=== PATIENT | female | born 1995 | race Hispanic/Latino ===

== ENCOUNTER 2018-03-26 07:54 | Inpatient (IN) | payer SELFPAY ==
[2018-03-26] MEDS ORDERED: ONDANSETRON 4 MG/2 ML VIAL ONE (08:08)
[2018-03-26] MEDS ORDERED: NA CHLORIDE 0.9% 1,000 ML ONE (08:08)
[2018-03-26 08:31] LABS: Absolute Lymphocytes (CBC) 1.6 K/uL (0.7-4.9); Absolute Monocytes 0.7 K/uL (0.1-1.3); Absolute Neutrophil 25.5 K/uL (1.8-8.0); Basophils % 0.1 % (0-1.3); Hematocrit 39.6 % (36.0-45.0); Lymphocytes % 5.8 % (15.3-44.8); MCH 24.7 pg (27.0-35.0); MCV 77.5 fL (80-100); MPV 7.5 fL (7.6-11.3); Monocytes % 2.7 % (3.3-12.3); RBC Red Blood Cell Count 5.11 M/uL (3.86-4.86)
[2018-03-26 08:36] LABS: Protime INR 1.38
--- NOTE | 2018-03-26 08:50 | RAD REPORT ---
EXAM DESCRIPTION: CT - CTHCSPWOC - 03/26/2018 8:23 am CLINICAL HISTORY: Fall, head and neck pain, head and neck injury, seizure COMPARISON: None. TECHNIQUE: Axial 5 mm thick images of the head were obtained. Axial 2 mm thick images of the cervic al spine were obtained with sagittal and coronal reconstruction images generated and reviewed. All CT scans are performed using dose optimization technique as appropriate and may include automated exposure control or mA/KV adjustment according to patient size. FINDINGS: No intracranial hemorrhage, mass, edema or acute intracranial finding. No suspicion for acute infarct ion. No extra-axial fluid collections. Mastoid air cells and paranasal sinuses are clear. No globe or orbit abnormality seen. Cervical bodies are normal in height. No subluxation abnormality. Reversal of the usual cervical lord osis is likely positioning artifact. Muscle spasm can create this pattern. No disk space narrowing. N o fracture or acute bony abnormality. No paraspinal soft tissue mass. Patient has a few small nonspec ific cervical lymph nodes. Left submandibular gland gland is smaller than the normal sized right. No suspicious soft tissue mass. IMPRESSION: Negative CT head examination for acute or significant finding. Negative CT cervical spine examination for acute or significant finding. Central canal detail is inherently limited. If there are concerns for disc herniation or central toño l abnormality, MR imaging followup could be performed.
[2018-03-26 08:59] LABS: ALT/SGPT 20 U/L (12-78); AST/SGOT 18 U/L (15-37); Albumin 3.3 g/dL (3.4-5.0); Alkaline Phosphatase 84 U/L (45-117); Amylase Level 30 U/L (25-115); BUN Blood Urea Nitrogen 9 mg/dL (7-18); Bicarbonate 23 mmol/L (21-32); Bilirubin Direct 0.2 mg/dL (0-0.2); Bilirubin Total 0.4 mg/dL (0.2-1.0); CKMB Creatine Kinase MB < 1.0 ng/mL (0.3-3.6); Creatine Phosphokinase 46 U/L (26-192); Glucose Level 131 mg/dL (74-106); Lipase 68 U/L (73-393); Magnesium 2.2 mg/dL (1.8-2.4); Potassium 3.4 mmol/L (3.5-5.1); Protein, Total 8.7 g/dL (6.4-8.2); Sodium Level 135 mmol/L (136-145)
[2018-03-26 09:26] LABS: Platelet Estimate ADEQ
[2018-03-26 09:27] LABS: Blood Morphology Comment NOT SEEN (NOT SEEN)
[2018-03-26] MEDS ORDERED: METRONIDAZOLE 500mg IVPB 500 MG/100 ML BAG IV ONE (09:37)
[2018-03-26] MEDS ORDERED: Levofloxacin500mg IV 500 MG/100 ML BAG IV ONE (09:37)
--- NOTE | 2018-03-26 09:44 | EKG ---
Test Date: 2018-03-26 Test Time: 08:13:11 [employer]: [place] MEASUREMENT RESULTS: Intervals: Rate: 64 MA: 162 QRSD: 112 QT: 422 QTc: 435 [place]: P: 44 MA: 162 QRS: -6 T: 2 INTERPRETIVE STATEMENTS: Normal sinus rhythm Minimal voltage criteria for LVH, may be normal variant Borderline ECG No previous ECG available for comparison Electronically Signed On 03-26-18 09:44:00 CDT by Tam Hastings
--- NOTE | 2018-03-26 11:03 | EDPHYS ---
Physician Documentation [facility] Name: Saloni Okeefe Age: 23 yrs Sex: Female : 1995 Arrival Date: 03/26/2018 Time: 07:53 Bed 13 Private MD: ED Physician Bruno Garg HPI: 03/26 08:01 This 23 yrs old Female presents to ER via EMS with complaints of Blood kav Pressure Problem, Seizure. 08:01 Onset: The symptoms/episode began/occurred acutely, just prior to arrival. Associated kav signs and symptoms: Pertinent positives:. 08:01 The patient or guardian reports tenderness. The complaints affect the bridge of nose kav and apex of the nose, bloody discharge.. Context of injury: The problem was sustained at home, resulted from a fall, from a seated position, Patient reports falling off of the toilet.. Associated signs and symptoms: Loss of consciousness: This patient experience a loss of consciousness, that was brief, for 1 minute(s), Pertinent positives: loss of conciousness, neck pain, seizure, base of the skull, Pertinent negatives: double vision, headache, incontinence, nausea, shortness of breath, vomiting, weakness in extremities, generalized weakness. The patient's problem is reported as an apparent seizure, with the patient having a single isolated episode, Episodes lasted less that one minute. Motor activity is described as blank stare, Brief loss of consciousness. Patient was not incontinent of bowel or bladder. Patient was not apneic. Loss of pulse was not noted. Post-ictal symptoms: None. syncope, syncope, vertigo, to room. Duration: This was a single incident. Context: the episode(s) was witnessed, by family, mother, occurred at home, occurred while the patient was sitting on the toilet. Possible contributing factors include:. This is a morbidly obese, female patient who is accompanied by her sister who reports PMHX: Seizure x 1 approximately one year ago and takes no medications for seizures. She reports that she has been currently "...doing a diet cleanse with herbal supplements". She reports that she began experiencing dizziness while sitting on the toilet and then waking up on the bathroom floor. She is hypotensive on admission to ED 88/64. She c/o nasal congestion and tenderness and reports epistaxis after fall. There is currently no nasal discharge in the ED on arrival. She also c/o left cheek tenderness and neck tenderness.. 09:07 She also reports diarrhea x 10 on 03/25/18 and low grade temperature.. 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 - Social history:: Smoking status: Patient/guardian denies using tobacco, Patient/guardian denies using alcohol. - Ebola Screening: : Patient negative for fever greater than or equal to 101.5 degrees Fahrenheit, and additional compatible Ebola Virus Disease symptoms Patient denies exposure to infectious person Patient denies travel to an Ebola-affected area in the 21 days before illness onset. - Family history:: not pertinent. - Hospitalizations: : No recent hospitalization is reported. - History obtained from: sister. ROS: 08:14 Constitutional: Negative for fever, chills, and weight loss, Eyes: Negative for injury, kav pain, redness, and discharge, Cardiovascular: Negative for chest pain, palpitations, and edema, Respiratory: Negative for shortness of breath, cough, wheezing, and pleuritic chest pain, Abdomen/GI: Negative for abdominal pain, nausea, vomiting, diarrhea, and constipation, Back: Negative for injury and pain, : Negative for injury, bleeding, discharge, and swelling, MS/Extremity: Negative for injury and deformity, Skin: Negative for injury, rash, and discoloration, Psych: Negative for depression, anxiety, suicide ideation, homicidal ideation, and hallucinations, Allergy/Immunology: Negative for hives, rash, and allergies, Endocrine: Negative for neck swelling, polydipsia, polyuria, polyphagia, and marked weight changes, Hematologic/Lymphatic: Negative for swollen nodes, abnormal bleeding, and unusual bruising. 08:14 ENT: Positive for nose bleed, sinus congestion, Negative for nasal discharge. 08:14 Neck: Positive for tenderness, Negative for injury or acute deformity, pain with movement, pain at rest, swelling, bony tenderness. 08:14 Neuro: Positive for dizziness, loss of consciousness, seizure activity, syncope, Negative for altered mental status, gait disturbance, headache, hearing loss, tingling, tinnitus, tremor, visual changes, weakness. 08:21 Abdomen/GI: Positive for diarrhea. kav Exam: 08:14 Constitutional: This is a well developed, well nourished patient who is awake, alert, kav and in no acute distress. Head/Face: Normocephalic, atraumatic. Eyes: Pupils equal round and reactive to light, extra-ocular motions intact. Lids and lashes normal. Conjunctiva and sclera are non-icteric and not injected. Cornea within normal limits. Periorbital areas with no swelling, redness, or edema. Neck: Trachea midline, no thyromegaly or masses palpated, and no cervical lymphadenopathy. Supple, full range of motion without nuchal rigidity, or vertebral point tenderness. No Meningismus. Chest/axilla: Normal chest wall appearance and motion. Nontender with no deformity. No lesions are appreciated. Cardiovascular: Regular rate and rhythm with a normal S1 and S2. No gallops, murmurs, or rubs. Normal PMI, no JVD. No pulse deficits. Respiratory: Lungs have equal breath sounds bilaterally, clear to auscultation and percussion. No rales, rhonchi or wheezes noted. No increased work of breathing, no retractions or nasal flaring. Abdomen/GI: Soft, non-tender, with normal bowel sounds. No distension or tympany. No guarding or rebound. No evidence of tenderness throughout. Back: No spinal tenderness. No costovertebral tenderness. Full range of motion. Skin: Warm, dry with normal turgor. Normal color with no rashes, no lesions, and no evidence of cellulitis. MS/ Extremity: Pulses equal, no cyanosis. Neurovascular intact. Full, normal range of motion. Psych: Awake, alert, with orientation to person, place and time. Behavior, mood, and affect are within normal limits. 08:14 ENT: Nose: External nose: swelling is noted, Examination of the other nostril shows no obvious abnormality. 08:14 Neuro: Exam negative for acute changes, focal neuro deficits, motor deficits, sensory deficits, cerebellar deficits, altered mental status, confusion, cranial nerve deficits, disorientation, dysarthria, gait abnormality, memory loss, paresthesias, Romberg test, weakness, Orientation: 11:04 Radiologist reports: Head/C-Spine CT: No acute or significant findings ka Vital Signs: 08:02 BP 104 / 62; Pulse 61; Resp 18; Temp 97.8(O); Pulse Ox 98% on R/A; Weight 131.54 kg; hj Height 5 ft. 5 in. (165.10 cm); 09:07 BP 104 / 60; Pulse 65; Resp 18; Pulse Ox 100% on R/A; hj 10:05 BP 108 / 70; Pulse 66; Resp 18; Pulse Ox 100% on R/A; hj 11:17 BP 112 / 68; Pulse 81; Resp 18; Pulse Ox 100% on R/A; hj 08:02 Body Mass Index 48.26 (131.54 kg, 165.10 cm) hj [place] Coma Score: 07:59 Eye Response: spontaneous(4). Verbal Response: oriented(5). Motor Response: obeys hj commands(6). Total: 15. 08:01 Eye Response: spontaneous(4). Verbal Response: oriented(5). Motor Response: obeys kav commands(6). Total: 15. MDM: 07:58 Medical screening is not applicable. kav 08:46 Data reviewed: vital signs, nurses notes, lab test result(s). ED course: critical lab [facility] result: wbc 27.9. 10:37 Physician consultation: Vijay Deblizandro APPIAH was called at 10:38, was contacted at 10:38, ka regarding admission, to the telemetry unit. to the medical/surgical unit. and will see patient in ED, shortly. 03/26 07:57 Order name: UDS 03/26 07:57 Order name: Amylase, Serum 03/26 07:57 Order name: Basic Metabolic Panel; Complete Time: 10:28 03/26 07:57 Order name: CBC with Diff; Complete Time: 10:28 03/26 08:59 Interpretation: Normal except: RBC 5.11; MCV 77.5; MCH 24.7; MCHC 31.8; PLT 413; RDW kav 15.4; MPV 7.5; JOSH% 91.4; LYM% 5.8; MN% 2.7; NEUT A 25.5; WBC 27.9. 03/26 07:57 Order name: Ckmb; Complete Time: 10:28 03/26 07:57 Order name: CPK; Complete Time: 10:28 03/26 07:57 Order name: Hepatic Function; Complete Time: 10:28 03/26 07:57 Order name: Lipase; Complete Time: 10:28 03/26 07:57 Order name: Magnesium; Complete Time: 10:28 03/26 07:57 Order name: Protime (+inr); Complete Time: 08:59 03/26 08:59 Interpretation: Normal except: PT 16.3. 03/26 07:57 Order name: Ptt, Activated; Complete Time: 08:59 03/26 09:00 Interpretation: Within normal limits. 03/26 07:57 Order name: Troponin (emerg Dept Use Only); Complete Time: 10:28 03/26 07:58 Order name: Urine Drug Screen 03/26 07:58 Order name: Amylase Level; Complete Time: 10:28 03/26 07:57 Order name: CT Head C Spine; Complete Time: 08:57 03/26 08:57 Interpretation: No acute disease. 03/26 07:57 Order name: EKG; Complete Time: 07:58 03/26 08:46 Order name: Manual Differential; Complete Time: 10:28 03/26 10:28 Interpretation: SEGS 88; BANDS [F] 5; LYM 7. 03/26 09:07 Order name: Blood Culture Adult (2) 03/26 09:07 Order name: Fecal Leukocyte Stain 03/26 09:07 Order name: Ova And Parasites 03/26 09:07 Order name: Stool Culture 03/26 09:07 Order name: CDIFF 03/26 09:07 Order name: CT Abd/Pelvis - W/Contrast 03/26 12:29 Order name: CT ED03/26 07:57 Order name: Cardiac monitoring; Complete Time: 08:03 03/26 07:57 Order name: EKG - Nurse/Tech; Complete Time: 08:15 03/26 07:57 Order name: IV Saline Lock; Complete Time: 08:15 03/26 07:57 Order name: Labs collected and sent; Complete Time: 08:15 kav 03/26 07:57 Order name: NPO; Complete Time: 08:03 kav 03/26 07:57 Order name: O2 Per Protocol; Complete Time: 08:03 kav 03/26 07:57 Order name: O2 Sat Monitoring; Complete Time: 08:04 kav Administered Medications: 08:12 Drug: NS 0.9% 1000 ml Route: IV; Rate: 1 bolus; Site: right antecubital; hj 11:21 Follow up: IV Status: Completed infusion hj 08:12 Drug: Zofran 4 mg Route: IVP; Site: right antecubital; hj 08:54 Follow up: Response: No adverse reaction hj 09:42 Drug: LevaQUIN 500 mg Volume: 100 ml; Route: IVPB; Infused Over: 60 mins; Site: right hj antecubital; 11:19 Follow up: IV Status: Completed infusion hj 10:20 Drug: Flagyl 500 mg Volume: 100 ml; Route: IVPB; Rate: 200 ml/hr; Infused Over: 30 hj mins; Site: right antecubital; 11:19 Follow up: IV Status: Completed infusion Disposition: 13:34 Co-signature as Attending Physician, Bruno Garg MD I agree with the assessment and kdr plan of care. Disposition: 03/26/18 11:03 Hospitalization ordered by Vijay Hanson for Observation. Preliminary diagnosis are Syncope and collapse, Epistaxis, Hypovolemia, Diarrhea, unspecified. - Bed requested for Telemetry/MedSurg (observation). - Status is Observation. hj - Condition is Fair. - Problem is new. - Symptoms have improved. UTI on Admission? No Signatures: Dispatcher [employer] EDMO Bruno Garg MD MD kdr Vern, Katherine, DIE MAKER STAMPING DIE MAKER STAMPING Fabiola David Henry, RN RN hj Corrections: (The following items were deleted from the chart) 08:23 07:58 Head Brain Wo Cont+CT.RAD.BRZ ordered. EDMO EDMS 08:59 08:59 Normal except: RBC 5.11; MCV 77.5; MCH 24.7; MCHC 31.8; PLT 413; RDW 15.4; MPV kav 7.5; JOSH% 91.4; LYM% 5.8; MN% 2.7; NEUT A 25.5. ka 11:35 11:03 Hospitalization Ordered by Vijay Hanson DO for Observation. Preliminary ag diagnosis is Syncope and collapse; Epistaxis; Hypovolemia; Diarrhea, unspecified. Bed requested for Telemetry/MedSurg (observation). Status is Observation. Condition is Fair. Problem is new. Symptoms have improved. UTI on Admission? No. ka 12:29 11:35 03/26/2018 11:03 Hospitalization Ordered by Vijay Hanson DO for Observation. hj Preliminary diagnosis is Syncope and collapse; Epistaxis; Hypovolemia; Diarrhea, unspecified. Bed requested for Telemetry/MedSurg (observation). Status is Observation. Condition is Fair. Problem is new. Symptoms have improved. UTI on Admission? No. ag
--- NOTE | 2018-03-26 11:03 | ER ---
Nurse's Notes [facility] Name: Saloni Okeefe Age: 23 yrs Sex: Female : 1995 Arrival Date: 03/26/2018 Time: 07:53 Bed 13 Private MD: Diagnosis: Syncope and collapse;Epistaxis;Hypovolemia;Diarrhea, unspecified Presentation: 03/26 07:56 Presenting complaint: EMS states: called by pt, with complaints of low blood pressure, hj 88/60; BG- 135; hx of seizure; reports nausea and vomiting; on scene, pt started having seizures, hit the bridge of her nose, presence of abrasion;. Transition of care: patient was not received from another setting of care. Onset of symptoms was March 26, 2018. Risk Assessment: Do you want to hurt yourself or someone else? Patient reports no desire to harm self or others. Initial Sepsis Screen: Does the patient meet any 2 criteria? No. Patient's initial sepsis screen is negative. Does the patient have a suspected source of infection? No. Patient's initial sepsis screen is negative. Care prior to arrival: None. 07:56 Method Of Arrival: EMS: [facility] 07:56 Acuity: HERI 3 hj Triage Assessment: 07:59 General: Appears in no apparent distress. uncomfortable, obese, Behavior is calm, hj cooperative, appropriate for age. Pain: Denies pain. EENT: No signs and/or symptoms were reported regarding the EENT system. Neuro: Level of Consciousness is awake, alert, obeys commands, Oriented to person, place, time, situation, Appropriate for age. Neuro: Reports hx of seizure. Cardiovascular: Capillary refill < 3 seconds Patient's skin is warm and dry. Respiratory: Airway is patent Respiratory effort is even, unlabored, Respiratory pattern is regular, symmetrical. GI: No signs and/or symptoms were reported involving the gastrointestinal system. : No signs and/or symptoms were reported regarding the genitourinary system. Derm: No signs and/or symptoms reported regarding the dermatologic system. Musculoskeletal: No signs and/or symptoms reported regarding the musculoskeletal system. 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 - Social history:: Smoking status: Patient/guardian denies using tobacco, Patient/guardian denies using alcohol. - Ebola Screening: : Patient negative for fever greater than or equal to 101.5 degrees Fahrenheit, and additional compatible Ebola Virus Disease symptoms Patient denies exposure to infectious person Patient denies travel to an Ebola-affected area in the 21 days before illness onset. - Family history:: not pertinent. - Hospitalizations: : No recent hospitalization is reported. - History obtained from: sister. Screenin:58 Abuse screen: Denies threats or abuse. Denies injuries from another. Nutritional hj screening: No deficits noted. Tuberculosis screening: No symptoms or risk factors identified. Fall Risk Secondary diagnosis (15 points) seizures. Assessment: 08:00 Reassessment: see triage for assessment;. hj 09:06 Reassessment: Patient and/or family updated on plan of care and expected duration. Pain hj level reassessed. Patient is alert, oriented x 3, equal unlabored respirations, skin warm/dry/pink. feeling better;. 10:05 Reassessment: Patient and/or family updated on plan of care and expected duration. Pain hj level reassessed. Patient is alert, oriented x 3, equal unlabored respirations, skin warm/dry/pink. awaiting results'. 11:18 Reassessment: Patient and/or family updated on plan of care and expected duration. Pain hj level reassessed. Patient is alert, oriented x 3, equal unlabored respirations, skin warm/dry/pink. awaiting CT;. 11:56 Reassessment: wheeled to CT;. hj Vital Signs: 08:02 BP 104 / 62; Pulse 61; Resp 18; Temp 97.8(O); Pulse Ox 98% on R/A; Weight 131.54 kg; hj Height 5 ft. 5 in. (165.10 cm); 09:07 BP 104 / 60; Pulse 65; Resp 18; Pulse Ox 100% on R/A; hj 10:05 BP 108 / 70; Pulse 66; Resp 18; Pulse Ox 100% on R/A; hj 11:17 BP 112 / 68; Pulse 81; Resp 18; Pulse Ox 100% on R/A; hj 08:02 Body Mass Index 48.26 (131.54 kg, 165.10 cm) [place] Coma Score: 07:59 Eye Response: spontaneous(4). Verbal Response: oriented(5). Motor Response: obeys hj commands(6). Total: 15. 08:01 Eye Response: spontaneous(4). Verbal Response: oriented(5). Motor Response: obeys kav commands(6). Total: 15. ED Course: 07:53 Patient arrived in ED. hj 07:55 Marika Cardoso FNP is [facility]. kav 07:55 Bruno Garg MD is Attending Physician. kav 07:55 Junior العلي, MONIE is Primary Nurse. hj 07:58 Triage completed. hj 08:00 Arm band placed on right wrist. hj 08:02 Patient has correct armband on for positive identification. Placed in gown. Bed in low hj position. Call light in reach. Side rails up X2. Adult w/ patient. 08:02 Seizure precautions initiated. hj 08:12 Initial lab(s) drawn, by nh, sent to lab. Inserted saline lock: 22 gauge in right mw2 forearm, using aseptic technique. Blood collected. 08:19 Warm blanket given. food and beverage assistant manager on. Pulse ox on. NIBP on. SEIZURE PADS IN PLACE . mw2 08:20 Basic Metabolic Panel Sent. mw2 08:21 CBC with Diff Sent. mw2 08:21 Ckmb Sent. mw2 08:21 CPK Sent. mw2 08:21 Hepatic Function Sent. mw2 08:21 Lipase Sent. mw2 08:21 Magnesium Sent. mw2 08:21 Protime (+inr) Sent. mw2 08:21 Ptt, Activated Sent. mw2 08:21 Troponin (emerg Dept Use Only) Sent. mw2 08:22 CT completed. Patient tolerated procedure well. Patient moved to CT via stretcher. Patient moved back from CT. 08:23 CT Head C Spine In Process Unspecified. EDMS 11:02 Vijay Hanson DO is Hospitalizing Provider. kav Administered Medications: 08:12 Drug: NS 0.9% 1000 ml Route: IV; Rate: 1 bolus; Site: right antecubital; 11:21 Follow up: IV Status: Completed infusion hj 08:12 Drug: Zofran 4 mg Route: IVP; Site: right antecubital; hj 08:54 Follow up: Response: No adverse reaction hj 09:42 Drug: LevaQUIN 500 mg Volume: 100 ml; Route: IVPB; Infused Over: 60 mins; Site: right hj antecubital; 11:19 Follow up: IV Status: Completed infusion hj 10:20 Drug: Flagyl 500 mg Volume: 100 ml; Route: IVPB; Rate: 200 ml/hr; Infused Over: 30 hj mins; Site: right antecubital; 11:19 Follow up: IV Status: Completed infusion hj Outcome: 11:03 Decision to Hospitalize by Provider. alex 12:29 Patient left the ED. Signatures: Dispatcher [employer] EDMarika Ba, Samantha Salmon Henry, RN RN Zohra Hare mw2 Corrections: (The following items were deleted from the chart) 08:23 07:56 Presenting complaint: EMS states: called by pt, with complaints of low blood hj pressure, 88/60; BG- 135; hx of seizure; hj
[2018-03-26] MEDS ORDERED: HYDROCODONE/APAP 7.5/325 MG TAB PO PRN (11:19)
[2018-03-26] MEDS ORDERED: TRAMADOL HCL 50 MG TAB PO PRN (11:19)
--- NOTE | 2018-03-26 12:07 | P.HP ---
Certification for Inpatient Patient admitted to: Observation With expected LOS: <2 Midnights Patient will require the following post-hospital care: None Practitioner: I am a practitioner with admitting privileges, knowledge of patient current condition, hospital course, and medical plan of care. Services: Services provided to patient in accordance with Admission requirements found in Title 42 Section 412.3 of the Code of Federal Regulations Patient History Date of Service: 03/26/18 Primary Care Provider: DANNY Rivers Reason for admission: Syncope History of Present Illness: 23-year-old female presented with syncopal episode. Patient presented to the emergency with syncopal episode. She was at work today. Coworkers noted that she was pale. At work she had a syncopal episode. She fell and hit her nose. She has not had this before. Patient further reports recent nausea, vomiting and diarrhea since Friday. During this time. She has taking herbal medication for colon cleansing. Mild abdominal pain noted. Mainly to the epigastric region. She rated pain about a 3/10. Some nausea, vomiting, fever noted today. Patient has no prior medical problems. In the ER she was evaluated. White count elevated at 27.9, hemoglobin 12.6. Sodium 135, potassium 3.4, renal function remained stable. She had 88 segmented neutrophils and 5 bands. The and lipase unremarkable. Unremarkable. CT abdomen pending. Patient was admitted for further evaluation and treatment. Patient given IV fluids in the emergency room. When I saw the patient the ER, she appeared dry. She is without any respiratory distress. Patient does not appear septic. Family at bedside. Allergies No Known Allergies Allergy (Unverified 03/26/18 11:26) Home medications list reviewed: Yes - Past Medical/Surgical History Diabetic: No -: Obesity -: Rosacea Past Surgical History: Patient denies surgical history Psychosocial/ Personal History: She has a boyfriend. She has no children. 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 - Family History Family History: Reviewed- Non-Contributory - Social History Smoking Status: Never smoker Alcohol use: No CD- Drugs: No Caffeine use: Yes Place of Residence: Home Review of Systems General: Weakness, As per HPI Eyes: Unremarkable ENT: Unremarkable Respiratory: Unremarkable Cardiovascular: Light Headedness, As per HPI Gastrointestinal: Nausea, Vomiting, Abdominal Pain, Diarrhea, As per HPI Genitourinary: Unremarkable Musculoskeletal: Unremarkable Integumentary: Unremarkable Neurological: As per HPI Lymphatics: Unremarkable Physical Examination - Physical Exam General: Alert, In no apparent distress, Oriented x3, Cooperative HEENT: Atraumatic, Normocephalic, PERRLA, Other (Dry mucous membranes. Malar rash noted.) Neck: Supple, No Thyromegaly Respiratory: Clear to auscultation bilaterally, Normal air movement Cardiovascular: Normal pulses, Regular rate/rhythm Gastrointestinal: Normal bowel sounds, Soft and benign, Non-distended, No masses , No rebound, No guarding, Tenderness (Mild pain to the epigastric region) Musculoskeletal: No erythema, No tenderness, No warmth Integumentary: No tenderness/swelling, No erythema, No warmth, No cyanosis, Rash (es) (Malar rash), Other (Dry skin noted.) Neurological: Normal speech, Normal strength at 5/5 x4 extr, Normal tone, Normal affect - Studies Laboratory Data (last 24 hrs) 03/26/18 08:12: PT 16.3 H, INR 1.38, APTT 27.2 03/26/18 08:12: WBC 27.9 H*, Hgb 12.6, Hct 39.6, Plt Count 413 H 03/26/18 08:12: Sodium 135 L, Potassium 3.4 L, BUN 9, Creatinine 0.90, Glucose 131 H, Magnesium 2.2, Total Bilirubin 0.4, AST 18, ALT 20, Alkaline Phosphatase 84, Amylase 30, Lipase 68 L Assessment and Plan - Problems (Diagnosis) (1) Nausea & vomiting Current Visit: Yes Status: Acute Plan: Will continue with medication. Will provide IV antibiotic therapy and fluids. Will monitor closely. CT scan of the abdomen pending. Possible colitis verses GERD. Will also provide PPI. Patient has been using colon cleansing herbal medication. Will discontinue. Will try to obtain more information from this. Qualifiers: Vomiting type: unspecified Vomiting Intractability: unspecified Qualified Code(s): R11.2 - Nausea with vomiting, unspecified (2) Diarrhea Current Visit: Yes Status: Acute Plan: Will evaluate for C diff colitis. Will check stool studies. Will continue with Levaquin and Flagyl. Will continue IV fluids. Await CT scan. Qualifiers: Diarrhea type: unspecified type Qualified Code(s): R19.7 - Diarrhea, unspecified (3) Abdominal pain Current Visit: Yes Status: Acute Plan: Continue as above. Qualifiers: Abdominal location: epigastric Qualified Code(s): R10.13 - Epigastric pain (4) Dehydration Current Visit: Yes Status: Acute Plan: Continue with IV fluids. Continue as above. (5) Rosacea Current Visit: Yes Status: Chronic Plan: Patient is seen by Dermatology as an outpatient. Will check INDU and thyroid lab. (6) Obesity Current Visit: Yes Status: Chronic Plan: Will address lifestyle modification education. (7) GERD (gastroesophageal reflux disease) Current Visit: Yes Status: Suspected Plan: Start PPI Qualifiers: Esophagitis presence: esophagitis presence not specified Qualified Code(s) : K21.9 - Gastro-esophageal reflux disease without esophagitis Discharge Plan: Home Plan to discharge in: 24 Hours - Advance Directives Does patient have a Living Will: No Does patient have a Durable POA for Healthcare: No - Code Status/Comfort Care Code Status Assessed: Yes Time Spent Managing Pts Care (In Minutes): 55
--- NOTE | 2018-03-26 12:28 | RAD REPORT ---
EXAM DESCRIPTION: CT - Abdomen Pelvis W Contrast - 03/26/2018 12:09 pm CLINICAL HISTORY: Abdominal pain. Nausea COMPARISON: 2015 TECHNIQUE: Computed axial tomography of the abdomen and pelvis was obtained. 100 cc Isovue-300 is ad ministered intravenously. Oral contrast was given. All CT scans are performed using dose optimization technique as appropriate and may include automated exposure control or mA/KV adjustment according to patient size. FINDINGS: The liver, spleen, pancreas, adrenals and kidneys appear unremarkable. The wall of most of the colon is moderately thickened. Pneumatosis intestinalis is not seen. Free air is not noted. There is no evidence of diverticulitis A small umbilical hernia is present IMPRESSION: Moderate pancolitis
[2018-03-26 13:05] LABS: Urine Appearance CLEAR; Urine Bilirubin NEGATIVE (NEG); Urine Blood NEGATIVE (NEG); Urine Color YELLOW; Urine Glucose NEGATIVE (NEG); Urine Protein NEGATIVE (NEG); Urine Specific Gravity >=1.030 (1.005-1.030); Urine Urobilinogen 0.2 mg/dL (0.2-1.0); Urine pH 5.5 (5.0-7.0)
[2018-03-26 13:12] LABS: Urine Microscopic Reflex NO UMIC
[2018-03-26] MEDS: NA CHLORIDE 0.9% 1,000 ML IV SCH ×2 (13:15→20:00)
[2018-03-26 13:16] VITALS: BMI 46.7
[2018-03-26 13:42] LABS: Thyroid Stimulating Hormone 1.3 uIU/mL (0.36-3.74)
[2018-03-26] MEDS ORDERED: POTASSIUM 25 MEQ EFFERV TAB PO ONE ×2 (15:00→22:52)
[2018-03-26] MEDS: METRONIDAZOLE 500mg IVPB 500 MG/100 ML BAG IV SCH ×2 (17:40→23:59)
[2018-03-26] MEDS: ACETAMINOPHEN 500 MG TAB PO PRN ×2 (18:24→23:59)
[2018-03-26] MEDS: ONDANSETRON 4 MG/2 ML VIAL IV PRN ×2 (18:32→23:59)
[2018-03-27] MEDS: NA CHLORIDE 0.9% 1,000 ML IV SCH ×3 (04:56→20:00)
[2018-03-27 05:44] LABS: Absolute Lymphocytes (CBC) 1.6 K/uL (0.7-4.9); Absolute Monocytes 0.7 K/uL (0.1-1.3); Absolute Neutrophil 6.9 K/uL (1.8-8.0); Basophils % 0.2 % (0-1.3); Eosinophils % 0.1 % (0-4.4); Hematocrit 34.1 % (36.0-45.0); Lymphocytes % 17.8 % (15.3-44.8); MCH 24.7 pg (27.0-35.0); MPV 7.5 fL (7.6-11.3); Monocytes % 7.5 % (3.3-12.3); RBC Red Blood Cell Count 4.37 M/uL (3.86-4.86)
[2018-03-27 06:00] LABS: BUN Blood Urea Nitrogen 6 mg/dL (7-18); Bicarbonate 24 mmol/L (21-32); Glucose Level 95 mg/dL (74-106); HDL Cholesterol 39 mg/dL (40-60); LDL Cholesterol, Calculated 53 (<130); Magnesium 2.2 mg/dL (1.8-2.4); Potassium 3.5 mmol/L (3.5-5.1); Sodium Level 139 mmol/L (136-145)
[2018-03-27] MEDS ORDERED: POTASSIUM CL SA 10 MEQ TAB PO ONE (06:09)
[2018-03-27] MEDS: PANTOPRAZOLE 40MG TABLET PO SCH (06:28)
--- NOTE | 2018-03-27 07:38 | ECHO ---
HEIGHT: 5 ft 6 in WEIGHT: 290 lb 0 oz DATE OF STUDY: 03/26/[address]: Vijay Hanson DO 2-DIMENSIONAL: YES M.MODE: YES DOPPLER: YES COLOR FLOW: YES TDS: NO PORTABLE: NO DEFINITY: NO BUBBLE STUDY: NO DIAGNOSIS: SYNCOPE CARDIAC HISTORY: CATHERIZATION: NO SURGERY: NO PROSTHETIC VALVE: NO PACEMAKER: NO MEASUREMENTS (cm) DIASTOLIC (NORMALS) SYSTOLIC (NORMALS) IVSd 0.8 (0.6-1.2) LA Diam 3.6 (1.9-4.0) LVEF 65% LVIDd 5.1 (3.5-5.7) LVIDs 3.3 (2.0-3.5) %FS 36% LVPWd 0.9 (0.6-1.2) Ao Diam 2.4 (2.0-3.7) 2 DIMENSIONAL ASSESSMENT: RIGHT ATRIUM: NORMAL LEFT ATRIUM: NORMAL RIGHT VENTRICLE: NORMAL LEFT VENTRICLE: NORMAL TRICUSPID VALVE: NORMAL MITRAL VALVE: NORMAL PULMONIC VALVE: NORMAL AORTIC VALVE: NORMAL PERICARDIAL EFFUSION: NONE AORTIC ROOT: NORMAL LEFT VENTRICULAR WALL MOTION: NORMAL DOPPLER/COLOR FLOW: NORMAL. COMMENTS: NORMAL 2D ECHO WITH DOPPLER. TECHNOLOGIST: TATIANNA ROBERTS
[2018-03-27 08:39] LABS: Barbiturates NEGATIVE (NEGATIVE); Benzodiazepines NEGATIVE (NEGATIVE); Cocaine NEGATIVE (NEGATIVE); METHAMPHETAM NEGATIVE (NEGATIVE); Methadone NEGATIVE (NEGATIVE); Opiates NEGATIVE (NEGATIVE); Phencyclidine NEGATIVE (NEGATIVE); THC Cannibis NEGATIVE (NEGATIVE)
[2018-03-27] MEDS: Levofloxacin500mg IV 500 MG/100 ML BAG IV SCH (09:11)
[2018-03-27] MEDS: METRONIDAZOLE 500mg IVPB 500 MG/100 ML BAG IV SCH ×2 (09:11→16:13)
[2018-03-27] MEDS: LACTOBACILLUS/ACIDOPHILUS TAB PO SCH ×3 (09:11→20:05)
--- NOTE | 2018-03-27 10:51 | P.PN ---
Subjective Date of Service: 03/27/18 Primary Care Provider: DANNY Rivers Chief Complaint: Syncope Subjective: Improving (Patient is slowly improving. Less pain noted. Diarrhea stone noted.) Physical Examination - Vital Signs Temperature: 96.8 F Blood Pressure: 118/60 Pulse: 63 Respirations: 18 Pulse Ox (%): 97 - Physical Exam General: Alert, In no apparent distress, Oriented x3, Cooperative HEENT: Atraumatic Neck: Supple Respiratory: Clear to auscultation bilaterally, Normal air movement Cardiovascular: Normal pulses, Regular rate/rhythm Gastrointestinal: Normal bowel sounds, Soft and benign, Non-distended, No masses , No rebound, No guarding, Tenderness (Mild diffuse pain noted.) Musculoskeletal: No erythema, No tenderness, No warmth Integumentary: No tenderness/swelling, No erythema, No warmth, No cyanosis Neurological: Normal speech, Normal strength at 5/5 x4 extr, Normal tone, Normal affect Lymphatics: No axilla or inguinal lymphadenopathy - Studies Laboratory Data (last 24 hrs) 03/27/18 04:53: Sodium 139, Potassium 3.5, BUN 6 L, Creatinine 0.60, Glucose 95 , Magnesium 2.2, Triglycerides 87, Cholesterol 109, HDL Cholesterol 39 L, Cholesterol/HDL Ratio 2.79 03/27/18 04:53: WBC 9.3 D, Hgb 10.8 L, Hct 34.1 L, Plt Count 324 D 03/26/18 21:56: Potassium 3.2 L Microbiology Data (last 24 hrs): 03/26/18 10:40 Stool Fecal Leukocyte Stain - Final 03/26/18 10:40 Stool Clostridium difficile Toxin Assay - Final Medications List Reviewed: Yes Assessment & Plan - Problems (Diagnosis) (1) Nausea & vomiting Onset Date: 03/27/18 Current Visit: Yes Status: Acute Plan: CT scan showed pancolitis. C diff culture negative. Will continue with IV antibiotic therapy and fluids. Will provide medication for nausea. Will add lactobacillus. Will provide medication for GERD. Echocardiogram pending. Pancolitis likely from colon cleansing herbal medication. Will slowly advance diet. Encourage ambulation. Will check orthostatics. Qualifiers: Vomiting type: unspecified Vomiting Intractability: unspecified Qualified Code(s): R11.2 - Nausea with vomiting, unspecified (2) Diarrhea Onset Date: 03/27/18 Current Visit: Yes Status: Acute Plan: Secondary to pancolitis. Continue as above. Qualifiers: Diarrhea type: unspecified type Qualified Code(s): R19.7 - Diarrhea, unspecified (3) Abdominal pain Onset Date: 03/27/18 Current Visit: Yes Status: Acute Plan: Continue as above. Qualifiers: Abdominal location: epigastric Qualified Code(s): R10.13 - Epigastric pain (4) Dehydration Onset Date: 03/27/18 Current Visit: Yes Status: Acute Plan: Continue with IV fluids. Continue as above. (5) Rosacea Onset Date: 03/27/18 Current Visit: Yes Status: Chronic Plan: Patient is seen by Dermatology as an outpatient. Will check INDU and thyroid lab. (6) Obesity Onset Date: 03/27/18 Current Visit: Yes Status: Chronic Plan: Will address lifestyle modification education. Qualifiers: Obesity type: due to excess calories Obesity classification: adult class 3 (BMI >= 40) Serious obesity comorbidity presence: with serious comorbidity Body mass index: BMI 45.0-49.9 Qualified Code(s): E66.01 - Morbid (severe) obesity due to excess calories; Z68.42 - Body mass index (BMI) 45.0-49.9, adult (7) GERD (gastroesophageal reflux disease) Onset Date: 03/27/18 Current Visit: Yes Status: Suspected Plan: Continue with PPI Qualifiers: Esophagitis presence: esophagitis presence not specified Qualified Code(s) : K21.9 - Gastro-esophageal reflux disease without esophagitis (8) Pancolitis Current Visit: Yes Status: Acute Plan: Continue with IV antibiotic therapy, IV fluids. Will advance diet as tolerated. Encourage ambulation. So for C diff culture negative. Patient will need colonoscopy in 4-6 weeks along with GI evaluation (9) Anemia Current Visit: Yes Status: Acute Plan: Likely dilutional in nature. Will check iron and B12 studies. Will monitor closely. Qualifiers: Anemia type: other cause (10) Hypokalemia Current Visit: Yes Status: Acute Plan: Will monitor and replace appropriately. Replacement protocol in place Discharge Plan: Home Plan to discharge in: 48 Hours Time Spent Managing Pts Care (In Minutes): 55
[2018-03-27 14:09] LABS: Hematocrit 35.5 % (36.0-45.0)
[2018-03-27 14:54] LABS: Ferritin 128.4 ng/mL (8-388)
[2018-03-27] MEDS: ACETAMINOPHEN 500 MG TAB PO PRN (15:50)
[2018-03-27] MEDS: ENOXAPARIN 40 MG/0.4 ML SQ SCH (16:13)
[2018-03-28] MEDS: NA CHLORIDE 0.9% 1,000 ML IV SCH ×3 (00:50→20:42)
[2018-03-28] MEDS: METRONIDAZOLE 500mg IVPB 500 MG/100 ML BAG IV SCH ×3 (00:50→17:42)
[2018-03-28 05:25] LABS: Absolute Lymphocytes (CBC) 2.2 K/uL (0.7-4.9); Absolute Monocytes 0.6 K/uL (0.1-1.3); Absolute Neutrophil 3.6 K/uL (1.8-8.0); Basophils % 0.5 % (0-1.3); Eosinophils % 1.5 % (0-4.4); Lymphocytes % 33.2 % (15.3-44.8); MCH 24.7 pg (27.0-35.0); MCV 78.2 fL (80-100); MPV 7.8 fL (7.6-11.3); Monocytes % 9.4 % (3.3-12.3); RBC Red Blood Cell Count 4.22 M/uL (3.86-4.86)
[2018-03-28 05:37] LABS: BUN Blood Urea Nitrogen 6 mg/dL (7-18); Bicarbonate 24 mmol/L (21-32); Glucose Level 94 mg/dL (74-106); Potassium 3.4 mmol/L (3.5-5.1); Sodium Level 141 mmol/L (136-145)
[2018-03-28] MEDS: PANTOPRAZOLE 40MG TABLET PO SCH (06:36)
[2018-03-28] MEDS: KCL 20 MEQ/100 mL IVPB 20 MEQ/100 ML BAG IV SCH ×2 (06:36→09:00)
[2018-03-28] MEDS ORDERED: LOPERAMIDE HCL 2 MG CAPSULE PO PRN (07:38)
[2018-03-28] MEDS: LACTOBACILLUS/ACIDOPHILUS TAB PO SCH ×3 (08:19→20:42)
[2018-03-28] MEDS: Levofloxacin500mg IV 500 MG/100 ML BAG IV SCH (08:19)
--- NOTE | 2018-03-28 09:05 | P.PN ---
Subjective Date of Service: 03/28/18 Primary Care Provider: DANNY Rivers Chief Complaint: Syncope Subjective: Improving (Last diarrhea noted. Less pain to the abdomen noted.) Physical Examination - Vital Signs Temperature: 97.4 F Blood Pressure: 119/60 Pulse: 67 Respirations: 18 Pulse Ox (%): 96 - Physical Exam General: Alert, In no apparent distress, Oriented x3, Cooperative HEENT: Atraumatic Neck: Supple Respiratory: Clear to auscultation bilaterally, Normal air movement Cardiovascular: Normal pulses, Regular rate/rhythm Gastrointestinal: Normal bowel sounds, Soft and benign, Non-distended, No tenderness, No masses, No rebound, No guarding Musculoskeletal: No erythema, No tenderness, No warmth Integumentary: No tenderness/swelling, No erythema, No warmth, No cyanosis Neurological: Normal speech, Normal strength at 5/5 x4 extr, Normal tone, Normal affect Lymphatics: No axilla or inguinal lymphadenopathy - Studies Medications List Reviewed: Yes Assessment & Plan - Problems (Diagnosis) (1) Nausea & vomiting Onset Date: 03/27/18 Current Visit: Yes Status: Acute Plan: CT scan showed pancolitis. C diff culture negative. Patient improved. Less diarrhea and abdominal pain noted IV antibiotic therapy and fluids. Will reassess this afternoon. If much improved then will consider discharge today if not tomorrow. Qualifiers: Vomiting type: unspecified Vomiting Intractability: unspecified Qualified Code(s): R11.2 - Nausea with vomiting, unspecified (2) Diarrhea Onset Date: 03/27/18 Current Visit: Yes Status: Acute Plan: Secondary to pancolitis. Continue as above. Qualifiers: Diarrhea type: unspecified type Qualified Code(s): R19.7 - Diarrhea, unspecified (3) Abdominal pain Onset Date: 03/27/18 Current Visit: Yes Status: Acute Plan: Continue as above. Qualifiers: Abdominal location: epigastric Qualified Code(s): R10.13 - Epigastric pain (4) Dehydration Onset Date: 03/27/18 Current Visit: Yes Status: Acute Plan: Continue with IV fluids. Continue as above. (5) Rosacea Onset Date: 03/27/18 Current Visit: Yes Status: Chronic Plan: Patient is seen by Dermatology as an outpatient. Will check INDU and thyroid lab. (6) Obesity Onset Date: 03/27/18 Current Visit: Yes Status: Chronic Plan: Will address lifestyle modification education. Qualifiers: Obesity type: due to excess calories Obesity classification: adult class 3 (BMI >= 40) Serious obesity comorbidity presence: with serious comorbidity Body mass index: BMI 45.0-49.9 Qualified Code(s): E66.01 - Morbid (severe) obesity due to excess calories; Z68.42 - Body mass index (BMI) 45.0-49.9, adult (7) GERD (gastroesophageal reflux disease) Onset Date: 03/27/18 Current Visit: Yes Status: Suspected Plan: Continue with PPI Qualifiers: Esophagitis presence: esophagitis presence not specified Qualified Code(s) : K21.9 - Gastro-esophageal reflux disease without esophagitis (8) Pancolitis Current Visit: Yes Status: Acute Plan: Continue with IV antibiotic therapy, IV fluids. Will advance diet as tolerated. Will reassess this afternoon for possible discharge. Patient will need follow up with GI and colonoscopy in 4-6 weeks. (9) Anemia Current Visit: Yes Status: Acute Plan: Iron deficiency noted. Will start low-dose iron. Qualifiers: Anemia type: iron deficiency Iron deficiency anemia type: unspecified iron deficiency Qualified Code(s): D50.9 - Iron deficiency anemia, unspecified (10) Hypokalemia Current Visit: Yes Status: Acute Plan: Will monitor and replace appropriately. Replacement protocol in place Discharge Plan: Home Plan to discharge in: 24 Hours Time Spent Managing Pts Care (In Minutes): 55
[2018-03-28] MEDS ORDERED: KCL 20 MEQ/100 mL IVPB 20 MEQ/100 ML BAG IV SCH (13:30)
[2018-03-28] MEDS: ONDANSETRON 4 MG/2 ML VIAL IV PRN (17:41)
[2018-03-28] MEDS: ENOXAPARIN 40 MG/0.4 ML SQ SCH (17:42)
[2018-03-29] MEDS ORDERED: POTASSIUM CL SA 10 MEQ TAB PO ONE (00:13)
[2018-03-29] MEDS: METRONIDAZOLE 500mg IVPB 500 MG/100 ML BAG IV SCH ×2 (01:13→08:27)
[2018-03-29] MEDS: NA CHLORIDE 0.9% 1,000 ML IV SCH (01:13)
[2018-03-29] MEDS: PANTOPRAZOLE 40MG TABLET PO SCH (05:07)
[2018-03-29 05:40] LABS: Absolute Lymphocytes (CBC) 2.3 K/uL (0.7-4.9); Absolute Monocytes 0.7 K/uL (0.1-1.3); Absolute Neutrophil 5.5 K/uL (1.8-8.0); Basophils % 0.2 % (0-1.3); Eosinophils % 1.3 % (0-4.4); Lymphocytes % 26.4 % (15.3-44.8); MCH 24.8 pg (27.0-35.0); MCV 77.8 fL (80-100); MPV 7.9 fL (7.6-11.3); Monocytes % 8.4 % (3.3-12.3); RBC Red Blood Cell Count 4.11 M/uL (3.86-4.86)
[2018-03-29 05:43] LABS: BUN Blood Urea Nitrogen 5 mg/dL (7-18); Bicarbonate 24 mmol/L (21-32); Glucose Level 96 mg/dL (74-106); Magnesium 1.9 mg/dL (1.8-2.4); Potassium 3.7 mmol/L (3.5-5.1); Sodium Level 139 mmol/L (136-145)
[2018-03-29] MEDS: Levofloxacin500mg IV 500 MG/100 ML BAG IV SCH (08:26)
[2018-03-29] MEDS: LACTOBACILLUS/ACIDOPHILUS TAB PO SCH (08:26)
[2018-03-29] MEDS ORDERED: FERROUS SULFATE 325 MG TAB PO SCH (09:00)
[2018-03-29] MEDS ORDERED: POTASSIUM 25 MEQ EFFERV TAB PO ONE (09:00)
[2018-03-29 09:15] VITALS: O2SAT 97
--- NOTE | 2018-03-29 10:34 | P.DS ---
Admission Date: 03/27/18 Discharge Date: 03/29/18 Primary Care Provider: DANNY Rivers Disposition: ROUTINE DISCHARGE Discharge Condition: GOOD Reason for Admission: Syncope Procedures: Echocardiogram: Normal ejection fraction otherwise unremarkable. CT head/neck: Unremarkable. CT Scan: COMPARISON: 2015 TECHNIQUE: Computed axial tomography of the abdomen and pelvis was obtained. 100 cc Isovue-300 is administered intravenously. Oral contrast was given. All CT scans are performed using dose optimization technique as appropriate and may include automated exposure control or mA/KV adjustment according to patient size. FINDINGS:The liver, spleen, pancreas, adrenals and kidneys appear unremarkable. The wall of most of the colon is moderately thickened. Pneumatosis intestinalis is not seen. Free air is not noted. There is no evidence of diverticulitis A small umbilical hernia is present IMPRESSION: Moderate pancolitis - Problems (1) Nausea & vomiting Onset Date: 03/27/18 Current Visit: Yes Status: Acute Qualifiers: Vomiting type: unspecified Vomiting Intractability: unspecified Qualified Code(s): R11.2 - Nausea with vomiting, unspecified (2) Diarrhea Onset Date: 03/27/18 Current Visit: Yes Status: Acute Qualifiers: Diarrhea type: unspecified type Qualified Code(s): R19.7 - Diarrhea, unspecified (3) Abdominal pain Onset Date: 03/27/18 Current Visit: Yes Status: Acute Qualifiers: Abdominal location: epigastric Qualified Code(s): R10.13 - Epigastric pain (4) Dehydration Onset Date: 03/27/18 Current Visit: Yes Status: Acute (5) Rosacea Onset Date: 03/27/18 Current Visit: Yes Status: Chronic (6) Obesity Onset Date: 03/27/18 Current Visit: Yes Status: Chronic Qualifiers: Obesity type: due to excess calories Obesity classification: adult class 3 (BMI >= 40) Serious obesity comorbidity presence: with serious comorbidity Body mass index: BMI 45.0-49.9 Qualified Code(s): E66.01 - Morbid (severe) obesity due to excess calories; Z68.42 - Body mass index (BMI) 45.0-49.9, adult (7) GERD (gastroesophageal reflux disease) Onset Date: 03/27/18 Current Visit: Yes Status: Suspected Qualifiers: Esophagitis presence: esophagitis presence not specified Qualified Code(s) : K21.9 - Gastro-esophageal reflux disease without esophagitis (8) Pancolitis Current Visit: Yes Status: Acute (9) Anemia Current Visit: Yes Status: Acute Qualifiers: Anemia type: iron deficiency Iron deficiency anemia type: unspecified iron deficiency Qualified Code(s): D50.9 - Iron deficiency anemia, unspecified (10) Hypokalemia Current Visit: Yes Status: Acute Brief History of Present Illness: 23-year-old female presented with syncopal episode. Patient presented to the emergency with syncopal episode. She was at work today. Coworkers noted that she was pale. At work she had a syncopal episode. She fell and hit her nose. She has not had this before. Patient further reports recent nausea, vomiting and diarrhea since Friday. During this time. She has taking herbal medication for colon cleansing. Mild abdominal pain noted. Mainly to the epigastric region. She rated pain about a 3/10. Some nausea, vomiting, fever noted today. Patient has no prior medical problems. In the ER she was evaluated. White count elevated at 27.9, hemoglobin 12.6. Sodium 135, potassium 3.4, renal function remained stable. She had 88 segmented neutrophils and 5 bands. The and lipase unremarkable. Unremarkable. CT abdomen pending. Patient was admitted for further evaluation and treatment. Patient given IV fluids in the emergency room. When I saw the patient the ER, she appeared dry. She is without any respiratory distress. Patient does not appear septic. Family at bedside. Hospital Course: Patient presented with syncopal episode with noted abdominal pain, diarrhea and nausea and vomiting. Syncopal episode likely from dehydration related to abdominal pain. CT scan revealed pancolitis. Patient had used a Teagan recent: Carrillo seen medication. C diff culture negative. Blood cultures negative. Patient improved with IV fluid hydration and antibiotics. At discharge she denied any significant abdominal pain, nausea, vomiting, or diarrhea. At discharge she will continue with Cipro 500 mg 1 pill twice daily and Flagyl 5 mg 1 pill 3 times a day for 10 days. Patient will also continue with lactobacillus 3 times a day. Patient may use Imodium over the counter as needed for diarrhea. Zofran 4 mg 1 pill 3 times a day as needed for nausea will be provided. Recommendation for the patient follow up with GI as an outpatient. Patient will need colonoscopy in 4-6 weeks to further address. Recommend to discontinue herbal medication or colon cleansing. Will recommend not to take any cleansing medication in the future. Patient likely has GERD. Patient will continue with Protonix 40 mg 1 pill once daily. Recommendation is for the patient follow up with GI as an outpatient to further evaluate. Patient will likely need EGD as an outpatient to further assess. Patient found to have iron deficiency anemia. Patient has been started on iron supplementation. At discharge she will continue with iron 325 mg 1 pill once daily. Recommendation is to recheck CBC in 2-4 weeks to monitor progress. Lifestyle modification education provided. Patient has Malar rash. INDU pending at discharge. This has improved during her stay. Patient may have underlying rosacea. Recommendation to follow up with Dermatology as an outpatient to further address. Vital Signs/Physical Exam: Temp Pulse Resp BP Pulse Ox 97.7 F 60 20 119/61 97 03/29/18 08:00 03/29/18 08:00 03/29/18 08:00 03/29/18 08:00 03/29/18 08:00 General: Alert, In no apparent distress, Oriented x3, Cooperative HEENT: Atraumatic Neck: Supple Respiratory: Clear to auscultation bilaterally, Normal air movement Cardiovascular: Normal pulses, Regular rate/rhythm Gastrointestinal: Normal bowel sounds, Soft and benign, Non-distended, No ascites, No tenderness, No masses, No rebound, No guarding Musculoskeletal: No erythema, No tenderness, No warmth Integumentary: No tenderness/swelling, No erythema, No warmth, No cyanosis Neurological: Normal speech, Normal strength at 5/5 x4 extr, Normal tone, Normal affect Laboratory Data at Discharge: WBC 8.7 K/uL (4.3-10.9) D 03/29/18 04:19 Hgb 10.2 g/dL (12.0-15.0) L 03/29/18 04:19 Hct 32.0 % (36.0-45.0) L 03/29/18 04:19 Plt Count 352 K/uL (152-406) 03/29/18 04:19 PT 16.3 SECONDS (9.5-12.5) H 03/26/18 08:12 INR 1.38 03/26/18 08:12 APTT 27.2 SECONDS (24.3-36.9) 03/26/18 08:12 Sodium 139 mmol/L (136-145) 03/29/18 04:19 Potassium 3.7 mmol/L (3.5-5.1) 03/29/18 04:19 BUN 5 mg/dL (7-18) L 03/29/18 04:19 Creatinine 0.50 mg/dL (0.55-1.3) L 03/29/18 04:19 Glucose 96 mg/dL (74-106) 03/29/18 04:19 Magnesium 1.9 mg/dL (1.8-2.4) 03/29/18 04:19 Total Bilirubin 0.4 mg/dL (0.2-1.0) 03/26/18 08:12 AST 18 U/L (15-37) 03/26/18 08:12 ALT 20 U/L (12-78) 03/26/18 08:12 Alkaline Phosphatase 84 U/L (45-117) 03/26/18 08:12 Triglycerides 87 mg/dL (<150) 03/27/18 04:53 Cholesterol 109 mg/dL (<200) 03/27/18 04:53 HDL Cholesterol 39 mg/dL (40-60) L 03/27/18 04:53 Cholesterol/HDL Ratio 2.79 03/27/18 04:53 Amylase 30 U/L (25-115) 03/26/18 08:12 Lipase 68 U/L (73-393) L 03/26/18 08:12 Home Medications: Ciprofloxacin HCl [Cipro 500 MG Tablet] 500 mg PO BID #20 tab 03/28/18 Ferrous Sulfate [Ferrous Sulfate*] 325 mg PO DAILY #30 tab 03/28/18 Lactobacillus Acidophilus [Acidophilus Lactobacilli] 1 each PO TID #90 capsule 03/28/18 Pantoprazole [Protonix Tab*] 40 mg PO DAILYAC #30 tab 03/28/18 metroNIDAZOLE [Flagyl] 500 mg PO Q8H #30 tablet 03/28/18 Ondansetron HCl [Zofran] 4 mg PO TID PRN #10 tablet 03/29/18 New Medications: Ciprofloxacin HCl [Cipro 500 MG Tablet] 500 mg PO BID #20 tab Ferrous Sulfate [Ferrous Sulfate*] 325 mg PO DAILY #30 tab Lactobacillus Acidophilus [Acidophilus Lactobacilli] 1 each PO TID #90 capsule metroNIDAZOLE [Flagyl] 500 mg PO Q8H #30 tablet Ondansetron HCl [Zofran] 4 mg PO TID PRN #10 tablet PRN Reason: Nausea / Vomiting Pantoprazole [Protonix Tab*] 40 mg PO DAILYAC #30 tab Patient Discharge Instructions: 1. Patient will need a follow up with a PCP in 1 week to follow up this hospitalization. 2. Patient presented with abdominal pain, diarrhea and syncope. Patient with dehydration. CT scan revealed pancolitis. This was likely from recent colon cleansing medication. Patient improved with IV antibiotic therapy and fluids. Echocardiogram unremarkable. CT head and neck unremarkable. At discharge she will continue with Cipro 500 mg 1 pill twice daily and Flagyl 5 mg 1 pill 3 times a day for 10 days. Patient will also continue with lactobacillus 3 times a day. Patient may use Imodium over the counter as needed for diarrhea. Recommendation for the patient follow up with GI as an outpatient. Patient will need colonoscopy in 4- 6 weeks to further address. Recommend not to use any cleansing medication in the future. 3. Patient likely has GERD. Patient will continue with Protonix 40 mg 1 pill once daily. Recommendation is for the patient follow up with GI as an outpatient to further evaluate. 4. Patient found to have iron deficiency anemia. Patient has been started on iron supplementation. At discharge she will continue with iron 325 mg 1 pill once daily. Recommendation is to recheck CBC in 2-4 weeks to monitor progress. 5. Lifestyle modification education provided. Diet: GI soft Activity: Ad carlos Time spent managing pt's care (in minutes): 55
[2018-03-29 15:23] VITALS: BP 115/58; TEMP 97
== END 2018-03-29 15:00 | disposition home or self-care (01) | DRG 392 ==
LOC: ER 07:54 → ERHOLD 10:58 → 4TH 11:36 → 2ND 17:46 → OBSVTOIN 03-27 09:07
PROVIDERS: ADMIT Family Medicine; ATTEND Family Medicine
DX: K52.89 Other specified noninfective gastroenteritis and colitis (principal); Z68.42 Body mass index [BMI] 45.0-49.9, adult; E86.0 Dehydration; D50.9 Iron deficiency anemia, unspecified; T47.4X5A Adverse effect of other laxatives, initial encounter; Y92.002 Bathroom of unspecified non-institutional (private) residence as the place of occurrence of the external cause; K21.9 Gastro-esophageal reflux disease without esophagitis; L71.9 Rosacea, unspecified; E66.9 Obesity, unspecified; E87.6 Hypokalemia; W18.11XA Fall from or off toilet without subsequent striking against object, initial encounter; Y93.E8 Activity, other personal hygiene; R04.0 Epistaxis
CPT/HCPCS: 36415; 70450; 72125; 74177; 80048; 80061; 80076; 80307; 81003; 82150; 82550; 82553; 82607; 82728; 83540; 83690; 83735; 84132; 84439; 84443; 84466; 84484; 85014; 85018; 85025; 85610; 85730; 86038; 87040; 87045; 87046; 87177; 87209; 87493; 89055; 93005; 93306; 96361; 96365; 96375; 99285; G0378; J1650; J2405; J7030; Q9967